=== PATIENT | female | born 1990 | race Caucasian/White ===

== ENCOUNTER 2016-12-11 14:33 | Emergency (ER) | payer SELFPAY ==
[~2016-12-11] VITALS: Ht 154.9 cm; Wt 68.0 kg
[2016-12-11] MEDS ORDERED: CYCLOBENZAPRINE HCL 10 MG TABLET PO ONE (15:45)
[2016-12-11] MEDS ORDERED: HYDROCODONE/ACETAMINOPHEN 5-325 MG TABLET PO ONE (15:45)
[2016-12-11 16:51] VITALS: BP 123/68
== END 2016-12-11 17:16 | disposition home or self-care (01) ==
LOC: EMS 14:37
DX: M26.609 Unspecified temporomandibular joint disorder, unspecified side (principal)
CPT/HCPCS: 99283

== ENCOUNTER 2021-01-10 18:47 | Emergency (ER) | payer OTHER ==
[~2021-01-10] VITALS: Ht 154.9 cm; Wt 54.5 kg
[2021-01-10 19:29] LABS: BASOPHILS % (AUTO) 0.4 % (0.0-2.0); EOSINOPHILS % (AUTO) 0.4 % (1.0-6.0); HEMATOCRIT 39.6 % (36-46); HEMOGLOBIN 13.2 g/dL (12.0-16.0); LYMPHOCYTES # (AUTO) 0.5 K/uL (1.0-4.8); MEAN CORPUSCULAR HEMOGLOBIN 30.1 pg (26.0-34.0); MEAN CORPUSCULAR HGB CONC 33.4 G/dL (31.0-37.0); MEAN CORPUSCULAR VOLUME 90 fL (80-100); MONOCYTES # (AUTO) 0.2 K/uL (0.1-1.0); MONOCYTES % (AUTO) 2.9 % (2.0-9.0); NEUTROPHILS # (AUTO) 7.7 K/uL (1.8-7.7); PLATELET COUNT (AUTO) 431 K/uL (150-450); RED CELL DISTRIBUTION WIDTH 13.9 % (11.5-14.5)
[2021-01-10 19:30] LABS: NEUTROPHILS % (AUTO) 90.3 % (40.0-70.0)
[2021-01-10 19:36] LABS: AMPHET/METH SCREEN,URINE NEGATIVE (NEGATIVE); BARBITURATE SCREEN, URINE NEGATIVE (NEGATIVE); BENZODIAZEPINES SCREEN,URINE NEGATIVE (NEGATIVE); CANNABINOID SCREEN,URINE NEGATIVE (NEGATIVE); COCAINE SCREEN,URINE POSITIVE (NEGATIVE); METHADONE SCREEN, URINE NEGATIVE (NEGATIVE); OPIATE SCREEN,URINE NEGATIVE (NEGATIVE)
[2021-01-10 19:37] LABS: PHENCYCLIDINE SCREEN,URINE NEGATIVE (NEGATIVE)
[2021-01-10 19:38] LABS: ANION GAP 11 mmol/L (8-16); CALCIUM, TOTAL 9.7 mg/dL (8.8-10.5); CARBON DIOXIDE 28 mmol/L (22-29); CHLORIDE 102 mmol/L (98-107); CREATININE 1.01 mg/dL (0.60-1.30); GLOMERULAR FILTR. RATE CALC > 60 mL/min (>60); GLUCOSE,RANDOM 111 mg/dL (70-110); SODIUM SERUM 141 mmol/L (136-145); UREA NITROGEN, BLOOD 11 mg/dL (7-18)
[2021-01-10 19:43] LABS: ALANINE AMINOTRANSFERASE 25 U/L (12-78); ALBUMIN 4.5 g/dL (3.4-5.0); ALKALINE PHOSPHATASE 42 U/L (46-116); ASPARTATE AMINOTRANSFERASE 18 U/L (15-37); BILIRUBIN,TOTAL 0.8 mg/dL (0.1-1.0); TOTAL PROTEIN, SERUM 7.7 g/dL (6.4-8.2)
[2021-01-10 20:45] VITALS: BP 126/91
== END 2021-01-10 21:10 | disposition home or self-care (01) ==
LOC: EMS 18:47
DX: F31.9 Bipolar disorder, unspecified (principal)
CPT/HCPCS: 36415; 80053; 80307; 85025; 99285; G0480

== ENCOUNTER 2021-01-21 12:35 | Emergency (ER) | payer OTHER ==
[~2021-01-21] VITALS: Ht 154.9 cm; Wt 54.5 kg
[2021-01-21] MEDS ORDERED: CefTRIAXone SODIUM 1 GM/VIAL IM ONE (16:45)
[2021-01-21] MEDS ORDERED: MetroNIDAZOLE 250 MG TABLET PO ONE ×3 (16:45)
[2021-01-21] MEDS ORDERED: EMTRICITABINE/TENOFOVIR 200-300 MG TABLET PO ONE (16:45)
[2021-01-21] MEDS ORDERED: RALTEGRAVIR 400 MG TABLET PO ONE (16:45)
[2021-01-21] MEDS ORDERED: DOXYCYCLINE HYCLATE 100 MG TABLET PO ONE (16:45)
[2021-01-21] MEDS ORDERED: LIDOCAINE/PF 1% 2 ML VIAL IM ONE (16:45)
[2021-01-21] MEDS ORDERED: TAMSULOSIN HCL 0.4 MG CAPSULE PO ONE (17:15)
[2021-01-21 17:19] VITALS: BP 133/72
== END 2021-01-21 17:25 | disposition home or self-care (01) ==
LOC: EMS 12:35
DX: T76.21XA Adult sexual abuse, suspected, initial encounter (principal); N89.8 Other specified noninflammatory disorders of vagina
CPT/HCPCS: 87210; 87491; 87591; 96372; 99284; J0696; J3490

== ENCOUNTER 2023-12-25 17:18 | Emergency (ER) | payer OTHER ==
[~2023-12-25] VITALS: Ht 154.9 cm; Wt 67.0 kg
[2023-12-25 17:33] VITALS: BP 132/95; PULSE 91; RESP 17; TEMP 98
== END 2023-12-25 19:41 | disposition left against medical advice (07) ==
LOC: EMS 17:19
DX: R10.30 Lower abdominal pain, unspecified (principal); M25.562 Pain in left knee; M25.561 Pain in right knee; Z53.21 Procedure and treatment not carried out due to patient leaving prior to being seen by health care provider